=== PATIENT | female | born 1940 | race Caucasian/White ===

== ENCOUNTER → 2019-09-21 | Outpatient (CLI) | payer MEDICARE, MEDICAID ==
[~2019-09-21] MED LIST: AMLO-150 PO; GABA300C10 PO; LEVO100T5 PO; LINA5TAB PO; LOSA50TA14 PO; METH500T7 PO; PRAV20TA2 PO; TRAM50TA2 PO
== END | disposition home or self-care (01) ==
LOC: CFH 13:18
PROVIDERS: ATTEND Nurse Practitioner Family
DX: H53.2 Diplopia (principal)
CPT/HCPCS: 70450

== ENCOUNTER 2020-01-27 14:23 | Emergency (ER) | payer MEDICARE, MEDICAID ==
[~2020-01-27] VITALS: Ht 157.5 cm; Wt 73.2 kg
[2020-01-27 15:06] LABS: BASOPHILS # (AUTO) 0.05 x10^3/uL (0-0.1); BASOPHILS % (AUTO) 0 % (0-1); EOSINOPHILS # (AUTO) 0.05 x10^3/uL (0-0.4); EOSINOPHILS % (AUTO) 0 % (1-7); LYMPHOCYTES # (AUTO) 1.53 x10^3/uL (1-3.4); LYMPHOCYTES % (AUTO) 11 % (22-44); MD NO; MEAN CORPUSCULAR HGB CONC 32.1 g/dL (32.4-35.8); MEAN CORPUSCULAR VOLUME 90.3 fL (80-100); MEAN PLATELET VOLUME 7.2 fL (7.4-10.4); MONOCYTES # (AUTO) 0.99 x10^3/uL (0.2-0.8); MONOCYTES % (AUTO) 7 % (2-9); NEUTROPHILS # (AUTO) 10.91 x10^3/uL (1.8-6.8); NEUTROPHILS % (AUTO) 81 % (42-75); PLATELET COUNT 357 x10^3/uL (130-400); RED BLOOD COUNT 4.43 x10^6/uL (3.82-5.3); RED CELL DISTRIBUTION WIDTH 15.8 % (9.6-15.2)
[2020-01-27 15:17] LABS: ALBUMIN 3.7 g/dL (3.4-5.0); ANION GAP 11 mmol/L (5-15); CALCIUM 9.6 mg/dL (8.5-10.1); CHLORIDE 104 mmol/L (98-107); CREATININE 1.38 mg/dL (0.55-1.02)
--- NOTE | 2020-01-27 15:38 | NUR ---
PT WHEELED TO ROOM AT THIS TIME.
[2020-01-27] MEDS ORDERED: HYDROcodone/APAP 5/325 TABLET ONE (16:30)
[2020-01-27] MEDS ORDERED: ONDANSETRON ODT 4 MG PO ONE (16:30)
[2020-01-27] MEDS ORDERED: ONDANSETRON ODT 4 MG ONE (16:30)
[2020-01-27] MEDS ORDERED: LIDOCAINE-MPF 1%, 5ML INFIL ONE (16:30)
[2020-01-27] MEDS ORDERED: LIDOCAINE-MPF 1%, 5ML ONE (16:30)
[2020-01-27] MEDS ORDERED: HYDROcodone/APAP 5/325 TABLET PO ONE (16:30)
--- NOTE | 2020-01-27 16:36 | NUR ---
PT MEDICATED PER EMAR. PT RESTING ON GURNEY W/ CALL LIGHT IN REACH, SIDE RAILS UPX2 AND FAMILY AT BEDSIDE. RESP EVEN AND UNLABORED, CHANO.
[2020-01-27 18:34] VITALS: BP 114/51
--- NOTE | 2020-01-27 19:00 | NUR ---
REPORT GIVEN TO HARSH HARRISON. PT RESTING ON [employer] Seed[employer] W/ CALL LIGHT IN REACH. RESP EVEN AND UNLABORED, CHANO.
== END 2020-01-27 19:43 | disposition home or self-care (01) ==
LOC: ED 15:30
DX: M25.462 Effusion, left knee (principal); I10 Essential (primary) hypertension; E03.9 Hypothyroidism, unspecified; E11.9 Type 2 diabetes mellitus without complications; M19.90 Unspecified osteoarthritis, unspecified site
CPT/HCPCS: 20610; 36415; 73564; 80048; 82040; 82945; 83615; 84157; 84560; 85025; 85810; 87070; 87205; 89050; 89060; 99284; Q0162